=== PATIENT | female | born 1995 | race Caucasian/White ===

== ENCOUNTER 2019-03-10 08:44 | Day surgery (SDC) | payer OTHER ==
[2019-03-10 09:14] LABS: Absolute Lymphocytes (CBC) 2.7 K/uL (0.7-4.9); Absolute Monocytes 0.5 K/uL (0.1-1.3); Absolute Neutrophil 3.5 K/uL (1.8-8.0); Basophils % 0.3 % (0-1.3); Eosinophils % 2.3 % (0-4.4); Hematocrit 39.8 % (36.0-45.0); Lymphocytes % 39.5 % (15.3-44.8); MPV 8.3 fL (7.6-11.3); Monocytes % 7.9 % (3.3-12.3); RBC Red Blood Cell Count 4.29 M/uL (3.86-4.86)
[2019-03-10] MEDS ORDERED: Ringers Lactate 1,000 ML IV ONE ×2 (09:15→11:06)
[2019-03-10 09:21] LABS: Specific Gravity > 1.030 (1.005-1.030)
[2019-03-10] MEDS: CEFOXITIN/SWI 1gm 1 GM/10 ML SYR ONE ×3 (09:57→10:18)
[2019-03-10] MEDS ORDERED: PROPOFOL 200 MG/20 ML VIAL IV ONE (10:02)
[2019-03-10] MEDS ORDERED: GLYCOPYRROLATE 0.2 MG/ML SYR ONE ×2 (10:02→10:03)
[2019-03-10] MEDS ORDERED: LIDOCAINE 2% MPF 5 ML VIAL ONE (10:03)
[2019-03-10] MEDS ORDERED: FENTANYL CITR 250 MCG/5 ML ONE (10:04)
[2019-03-10] MEDS ORDERED: NEOSTIGMINE 1 MG/ML -10 ML VIAL ONE ×2 (10:06→10:55)
[2019-03-10] MEDS ORDERED: ROCURONIUM 50 MG/5 ML VIAL IV ONE (10:07)
[2019-03-10] MEDS ORDERED: ONDANSETRON 4 MG/2 ML VIAL ONE ×2 (10:07→12:32)
[2019-03-10] MEDS ORDERED: MIDAZOLAM HCL 2 MG/2 ML INJ ONE (10:08)
[2019-03-10] MEDS ORDERED: MEPERIDINE HCL 25 MG/0.5 ML ONE (10:55)
[2019-03-10] MEDS: MEPERIDINE HCL 25 MG/0.5 ML ONE ×2 (11:26→11:34)
[2019-03-10] MEDS: FENTANYL CITR 100 MCG/2 ML ONE ×2 (11:39→11:46)
[2019-03-10] MEDS ORDERED: FENTANYL CITR 100 MCG/2 ML ONE (12:11)
[2019-03-10] MEDS ORDERED: HYDROCODONE/APAP 7.5/325 MG TAB ONE (12:32)
--- NOTE | 2019-03-10 22:50 | OP ---
Date of Procedure: 03/10/2019 Surgeon: Arnulfo Butt MD Calculating Machine Mechanic: JAMIE Cabrera Preoperative Diagnoses: 1.Chronic cholecystitis. 2.Biliary dyskinesia. Postoperative Diagnoses: 1.Chronic cholecystitis. 2.Biliary dyskinesia. Procedure: Laparoscopic cholecystectomy. Estimated Blood Loss: Minimal. Specimen: Gallbladder. Finding: As above. Anesthesia: General. Complications: None. Disposition: The patient tolerated the procedure in stable condition and taken to Recovery in good g eneral condition. Procedure In Detail: The patient was brought to the OR and placed in supine position. General anest hesia was begun. The patient was prepped and draped in usual sterile fashion. Marcaine 0.5% was infi ltrated locally. A #15 blade was used to make a 1-cm supraumbilical midline incision. Subcutaneous tissues were divided. The fascia was identified and divided. A #1 Vicryl stay suture was placed. Peritoneal cavity was entered with blunt dissection. A 12-mm trocar placed into the peritoneal cavit y under direct vision. Pneumoperitoneum was established. Then, three 5-mm trocars were placed, 1 in the epigastrium just to the right of midline, and 2 in the right subcostal region. Laparoscopy reve aled chronic inflammation of the gallbladder. Fundus was retracted superiorly. Infundibulum was id entified and retracted inferolaterally. Cystic duct and cystic artery were clearly identified with b shyla dissection. Clips were placed. Both structures were divided. Cautery was used to remove the g allbladder from the liver bed. Bleeding in the liver bed was controlled with cautery. The gallbladd er was retrieved through the umbilicus via an EndoCatch bag. Right upper quadrant was irrigated. Ef fluent was clear. No evidence of bleeding or bile leakage appreciated. Subsequently, all trocars we re removed under direct vision. Stay sutures were tied to each other to approximate the fascial defe ct. Subcu wounds were irrigated. Bleeding was controlled with cautery. 3-0 chromic was used to melvin roximate the subcutaneous tissues and close the skin. Sterile dressing was applied. The patient was awakened and taken to Recovery in good general condition. Discharge Note: The patient will go to Day Surgery, and home when stable. Disposition: Home. Condition: Stable. Discharge Instructions: 1.Resume home medications and diet. 2.Activity as tolerated. 3.No heavy lifting. 4.Remove outer dressing in 2 days. 5.Shower. 6.Keep wound clean and dry. 7.Follow up in my office in a week. Call for appointment. 8.Tylenol No.3, one tablet p.o. q.4 p.r.n. pain. 9.Incentive spirometry q.1 hour. 10.Keep Steri-Strips on at all times. DUC/ZEYAD Voice ID: [id number] Report ID: [id number]
== END 2019-03-10 14:17 | disposition home or self-care (01) ==
LOC: OR 08:44
PROVIDERS: ATTEND Surgery
PROC: 0FT44ZZ Resection of Gallbladder, Percutaneous Endoscopic Approach (ICD-10-PCS; principal; 2019-03-10 10:00)
DX: K81.1 Chronic cholecystitis (principal); K82.8 Other specified diseases of gallbladder
CPT/HCPCS: 36415; 81025; 85025; 88304; J2175; J2250; J2405; J2704; J2710; J3010

== ENCOUNTER 2022-11-24 01:14 | Emergency (ER) | payer BC, OTHER ==
--- OUTSIDE RECORDS SUMMARY | 2022-11-24 01:17 | XMS REPORT | Continuity of Care Document ---
:1995 Author Organization [facility] t Address [address] [place] [address] [address]. P[address] [place] [address] Care Team Providers Name Role Phone JAVIER Attending Clinician Unavailable Gurvinder Arriaga Attending Clinician [phone] JAVIER Admitting Clinician Unavailable Payers Payer Name Policy Type Policy Number Effective Date Expiration Date S r[place] [id number] 2019 00:00:00 [place] Problems Condition Condition Condition Status Onset Resolution Last Treating Co mments Source Name Details Category Date Date Treatment Clinician Date Hyperchole Hyperchole Problem Active [place] sterolemia sterolemia 1-06 Co mmuni 00:00: ty 00 [facility] Mixed Mixed Problem Active [place] anxiety Anxiety 1-06 Communi and and 00:00: ty depressive Depressive 00 Ho spita disorder Disorder [facility] Allergies, Adverse Reactions, Alerts Allergy Allergy Status Severity Reaction(s) Onset Inactive Treating Comm ents Source Name Type Date Date Clinician SULFA Allergy Active [place] (SULFONA to Communi MIDE substanc ty ANTIBIOT e [facility]osp[facility]) [facility] Social History Smoking Status Start Date Stop Date Source Never Smoker [facility] Medications Ordered Filled Start Stop Current Ordering Indication Dosage Frequency Signature Comments Components Source Medication Medication Date Date Medication? Clinician (SIG) Name Name bupropion bupropion No bupropion [place] HCl XL 150 HCl XL 150 HCl XL 150 Communi mg 24 hr mg 24 hr mg 24 hr ty tablet, tablet, tablet, Hospit a extended extended extended l release release release Clinic s Take 1 Take 1 Take 1 tablet tablet tablet daily by daily by daily by mouth mouth mouth hydroxyzine hydroxyzine No hydroxyzin [place] HCl 10 mg HCl 10 mg e HCl 10 C ommuni tablet Take tablet Take mg tablet ty PRN PRN Take PRN Hospita l Clinics prednisone prednisone No prednisone [place] 20 mg 20 mg 20 mg Communi tablet 2 tablet 2 tablet 2 ty tablets tablets tablets Hospit a first day, first day, first day, l then 1 po then 1 po then 1 po Clinics qd until qd until qd until finished finished finished bupropion bupropion No bupropion [place] HCl XL 150 HCl XL 150 HCl XL 150 Communi mg 24 hr mg 24 hr mg 24 hr ty tablet, tablet, tablet, Hospit a extended extended extended l release release release Clinic s Take 1 Take 1 Take 1 tablet tablet tablet daily by daily by daily by mouth mouth mouth hydroxyzine hydroxyzine No hydroxyzin [place] HCl 10 mg HCl 10 mg e HCl 10 C ommuni tablet Take tablet Take mg tablet ty PRN PRN Take PRN Hospita l Clinics prednisone prednisone No prednisone [place] 20 mg 20 mg 20 mg Communi tablet 2 tablet 2 tablet 2 ty tablets tablets tablets Hospit a first day, first day, first day, l then 1 po then 1 po then 1 po Clinics qd until qd until qd until finished finished finished bupropion bupropion No bupropion [place] HCl XL 150 HCl XL 150 HCl XL 150 Communi mg 24 hr mg 24 hr mg 24 hr ty tablet, tablet, tablet, Hospit a extended extended extended l release release release Clinic s Take 1 Take 1 Take 1 tablet tablet tablet daily by daily by daily by mouth mouth mouth hydroxyzine hydroxyzine No hydroxyzin [place] HCl 10 mg HCl 10 mg e HCl 10 C ommuni tablet Take tablet Take mg tablet ty PRN PRN Take PRN Hospita [facility]ics prednisone prednisone No prednisone [place] 20 mg 20 mg 20 mg Communi tablet 2 tablet 2 tablet 2 ty tablets tablets tablets Hospit a first day, first day, first day, l then 1 po then 1 po then 1 po Clinics qd until qd until qd until finished finished finished Vital Signs Vital Name Observation Time Observation Value Comments Source BP Diastolic 2021-11-13 00:00:00 70 mm[Hg] [facility] s Height 2021-11-13 00:00:00 63 [in_i] [facility] s BMI (Body Mass 2021-11-13 00:00:00 18.1 kg/m2 [facility] s BP Systolic 2021-11-13 00:00:00 108 mm[Hg] [facility] s Body Weight 2021-11-13 00:00:00 1632 [oz_av] [facility] s Procedures Procedure Date / Time Performing Clinician Source Performed XR, foot, 3 or more view 2021-11-13 00:00:00 [facility] Cholecystectomy [facility] Encounters Start End Encounter Admission Attending Care Care Encounter Source Date/Time Date/Time Type Type Clinicians Facility Department ID 2022-02-11 2022-02-11 Outpatient [facility]R [facility] [id number] [place] 03:27:00 03:27:00 [id number] [facility] 2022-01-07 2022-01-[address] [facility] [id number] [place] 03:59:00 03:59:00 [id number] [facility] 2021-12-04 2021-12-[address] [facility] [address] [place] 06:15:00 06:15:00 0127 [facility] 2021-11-13 2021-11-[address] [facility] [id number] [place] 02:58:00 02:58:00 0106 [facility] 2021-11-13 2021-11-13 [facility] [place] [facility] [place] 00:00:00 00:00:00 [facility] - DO: [address] Hospit [facility] l [address], [facility] Clinic s [place], [place] CLINIC, [address] PENNY , Ph. 2021-11-13 2021-11-13 Outpatient [facility] [id number] 00:00:00 00:00:00 Gurvinder [id number] Anjel [id number] 2021-11-[address] [facility] [id number] 00:00:00 00:00:00 Gurvinder [id number] Anjel [id number] 2021-11-[address] [facility] [id number] 00:00:00 00:00:00 Gurvinder [id number] Anjel [id number] Results This patient has no known results.
[2022-11-24 01:48] LABS: Urine Blood 2+ (Negative); Urine Glucose Negative (Negative); Urine Protein 1+ (Negative)
[2022-11-24] MEDS ORDERED: MORPHINE 4 MG/ML SYR ONE (02:02)
[2022-11-24] MEDS ORDERED: ONDANSETRON 4 MG/2 ML VIAL ONE (02:02)
[2022-11-24 02:03] LABS: Hematocrit 41.3 % (36.0-45.0); Lymphocytes % 28.6 % (15.3-44.8); MCV 91.9 fL (80-100); MPV 8.2 fL (7.6-11.3); RBC Red Blood Cell Count 4.49 M/uL (3.86-4.86)
[2022-11-24 02:06] LABS: Urine Bacteria <20 /HPF (<20); Urine Mucus Slight /HPF (None Seen); Urine RBC 21-50 /HPF (None Seen); Urine WBC Clump Rare /HPF (None Seen)
[2022-11-24 02:30] LABS: Albumin 4.5 g/dL (3.4-5.0); Bilirubin Total 0.6 mg/dL (0.2-1.0); Potassium 3.2 mmol/L (3.5-5.1); Protein, Total 8.3 g/dL (6.4-8.2)
--- NOTE | 2022-11-24 03:43 | EDPHYS ---
Physician Documentation [facility] Name: Brianda Rodriguez Age: 26 yrs Sex: Female : 1995 Arrival Date: 11/24/2022 Time: 01:20 Bed 4 Private MD: ED Physician Leno Ramirez HPI: 11/24 02:35 This 26 yrs old Female presents to ER via Ambulatory with complaints of Abdominal Pain, rn Back Pain. 02:35 The patient presents with abdominal pain in the right upper quadrant, right lower rn quadrant. 02:35 Onset: The symptoms/episode began/occurred 2 day(s) ago. The symptoms radiate to right rn back. Associated signs and symptoms: Pertinent positives: dysuria, nausea, Pertinent negatives: fever, shortness of breath, vaginal discharge, vomiting. The symptoms are described as intermittent. Modifying factors: The symptoms are alleviated by nothing, the symptoms are aggravated by touching the area. Severity of pain: At its worst the pain was moderate in the emergency department the pain is unchanged. The patient has not experienced similar symptoms in the past. The patient has not recently seen a physician. 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 - Social history:: Smoking status: Patient denies any tobacco usage or history of. - Family history:: not pertinent. - Hospitalizations: : No recent hospitalization is reported. ROS: 02:35 Constitutional: Negative for fever, chills, and weight loss, Eyes: Negative for injury, rn pain, redness, and discharge, Cardiovascular: Negative for chest pain, palpitations, and edema, Respiratory: Negative for shortness of breath, cough, wheezing, and pleuritic chest pain, Abdomen/GI: + right lower abd pain, + nausea, no vomiting Back: Negative for injury, + right flank/back pain : + dysuria and increased frequency MS/Extremity: Negative for injury and deformity, Skin: Negative for injury, rash, and discoloration, Neuro: Negative for headache, numbness, tingling, and seizure. Exam: 02:35 Constitutional: This is a well developed, well nourished patient who is awake, alert, rn appears uncomfortable, ambulatory to room and bathroom without difficulty. Head/Face: Normocephalic, atraumatic. Cardiovascular: Regular rate and rhythm. No pulse deficits. Respiratory: No increased work of breathing, no retractions or nasal flaring. Abdomen/GI: soft, + RLQ tenderness, no rebound, no masses, + suprapubic tenderenss Back: No spinal tenderness. Full range of motion. Skin: Warm, dry MS/ Extremity: Pulses equal, no cyanosis. Neuro: Awake and alert, GCS 15, oriented to person, place, time, and situation. Vital Signs: 01:31 BP 124 / 85; Pulse 93; Resp 16; Temp 98.0(O); Pulse Ox 100% on R/A; Weight 45.36 kg ll3 (R); Height 5 ft. 4 in. (162.56 cm); Pain 8/10; 01:49 BP 125 / 75; Pulse 91; Resp 16; Pulse Ox 100% on R/A; kd3 02:36 BP 116 / 73; Pulse 73; Resp 19; Pulse Ox 100% on R/A; kd3 03:09 BP 122 / 83; Pulse 91; Resp 18; Pulse Ox 100% ; kd3 04:47 BP 122 / 76; Pulse 92; Resp 19; Pulse Ox 99% on R/A; kd3 01:31 Body Mass Index 17.16 (45.36 kg, 162.56 cm) ll3 MDM: 01:20 Patient medically screened. rn 03:08 Differential diagnosis: appendicitis, bowel obstruction, diverticulitis, Ectopic rn , Endometriosis, non-specific abd pain, Ovarian Torsion, Peritonitis, Pyelonephritis, Ureterolithiasis, urinary tract infection. 03:39 Data reviewed: vital signs, nurses notes, lab test result(s), radiologic studies, CT rn scan, and as a result, I will discharge patient. 03:40 Counseling: I had a detailed discussion with the patient and/or guardian regarding: the rn historical points, exam findings, and any diagnostic results supporting the discharge/admit diagnosis, lab results, radiology results, the need for outpatient follow up, to return to the emergency department if symptoms worsen or persist or if there are any questions or concerns that arise at home. Response to treatment: the patient's symptoms have markedly improved after treatment, and as a result, I will discharge patient. Special discussion: Based on the patient's Hx, exam, and Dx evaluation, there is no indication for emergent surgery or inpatient Tx. It is understood by the patient/guardian that if the Sx's persist or worsen they need to return immediately for re-evaluation. I discussed with the patient/guardian in detail that at this point there is no indication for admission to the hospital. It is understood, however, that if the symptoms persist or worsen the patient needs to return immediately for re-evaluation. Based on the history and exam findings, there is no indication for further emergent testing or inpatient evaluation. I discussed with the patient/guardian the need to see the primary care provider for further evaluation of the symptoms. ED course: NO acute findings on CT abdomen/pelvis, normal appendix, has already had gallbladder removed. + WBC and WBC clumps in Urine, will treat for UTI given dysuria and flank pain. No evidence of pyelonephritis. Return precautions given and understood.. 11/24 01:31 Order name: CBC with Diff; Complete Time: 03:14 rn 11/24 03:40 Interpretation: Within normal limits. rn 11/24 01:31 Order name: CMP; Complete Time: 03:14 rn 11/24 03:40 Interpretation: Normal except: K 3.2. rn 11/24 01:31 Order name: Lipase; Complete Time: 03:14 rn 11/24 03:40 Interpretation: Within normal limits. rn 11/24 01:31 Order name: Urine Microscopic Only; Complete Time: 03:14 rn 11/24 03:40 Interpretation: Abnormal. rn 11/24 01:31 Order name: Urine Culture rn 11/24 01:48 Order name: Urine Dipstick-Ancillary; Complete Time: 01:58 EDMS 11/24 01:31 Order name: CT Abd/Pelvis - IV Contrast Only rn 11/24 01:31 Order name: IV Saline Lock; Complete Time: 01:48 rn 11/24 01:31 Order name: Labs collected and sent; Complete Time: 01:48 rn 11/24 02:08 Order name: Urine --Ancillary (enter results); Complete Time: 03:14 bb 11/24 01:31 Order name: Urine Dipstick-Ancillary (obtain specimen); Complete Time: 01:49 rn 11/24 01:31 Order name: Urine Test (obtain specimen); Complete Time: 01:49 rn Administered Medications: 02:05 Drug: morphine 4 mg Route: IVP; Infused Over: 4 mins; Site: left antecubital; kd3 03:50 Follow up: Response: No adverse reaction kd3 02:05 Drug: Zofran (Ondansetron) 4 mg Route: IVP; Site: left antecubital; kd3 03:50 Follow up: Response: No adverse reaction kd3 03:50 Drug: Cipro (ciprofloxacin) 400 mg Volume: 200 ml; Route: IVPB; Infused Over: 60 mins; kd3 Site: left antecubital; 04:47 Follow up: Response: No adverse reaction; IV Status: Completed infusion; IV Intake: kd3 200ml 04:52 Drug: Ondansetron 4 mg Route: PO; kd3 Disposition Summary: 11/24/22 03:42 Discharge Ordered Location: Home rn Problem: new rn Symptoms: have improved rn Condition: Stable rn Diagnosis - Abdominal pain, unspecified rn - UTI/ Urinary tract infection, site not specified rn Followup: rn - With: Private Physician - When: As needed - Reason: Recheck today's complaints, Re-evaluation by your physician Discharge Instructions: - Discharge Summary Sheet rn - Abdominal Pain, Adult rn - Urinary Tract Infection, Adult rn Forms: - Medication Reconciliation Form rn - Thank You Letter rn - Antibiotic medical assistant internal medicine - Prescription Opioid Use rn Prescriptions: - Cipro 500 mg Oral Tablet - take 1 tablet by ORAL route every 12 hours for 10 days; 20 tablet; Refills: 0, rn Product Selection Permitted - Fluconazole 150 mg Oral Tablet - take 1 tablet by ORAL route once daily; 3 tablet; Refills: 0, Product Selection rn Permitted - ondansetron 4 mg Oral - take 4 milligrams by SUBLINGUAL route every 8 hours; 15 tablet; Refills: 0, rn Product Selection Permitted Signatures: Dispatcher [employer] Leno Antony MD MD rn Loubet, Lynsea, RN RN ll3 Cira Mace RN RN kd3 Corrections: (The following items were deleted from the chart) 02:41 02:35 Constitutional: This is a well developed, well nourished patient who is awake, rn alert, appears uncomfortable rn
--- NOTE | 2022-11-24 03:43 | ER ---
Nurse's Notes [facility] Name: Brianda Rodriguez Age: 26 yrs Sex: Female : 1995 Arrival Date: 11/24/2022 Time: 01:20 Bed 4 Private MD: Diagnosis: Abdominal pain, unspecified;UTI/ Urinary tract infection, site not specified Presentation: 11/24 01:31 Chief complaint: Patient states: C/o abdominal pain, back pain, nausea, chills, and ll3 urinary frequency. Coronavirus screen: Vaccine status: Patient reports receiving the 2nd dose of the covid vaccine. At this time, the client does not indicate any symptoms associated with coronavirus-19. Ebola Screen: No symptoms or risks identified at this time. Initial Sepsis Screen: Does the patient meet any 2 criteria? No. Patient's initial sepsis screen is negative. Does the patient have a suspected source of infection? No. Patient's initial sepsis screen is negative. Risk Assessment: Do you want to hurt yourself or someone else? Patient reports no desire to harm self or others. Onset of symptoms was November 22, 2021. 01:31 Method Of Arrival: Ambulatory ll3 01:31 Acuity: ANAT 3 ll3 Triage Assessment: 01:36 General: Appears uncomfortable, Behavior is calm, cooperative. Pain: Complains of pain ll3 in right upper quadrant Pain radiates to back Pain currently is 8 out of 10 on a pain scale. Neuro: Level of Consciousness is awake, alert, obeys commands, Oriented to person, place, time, situation. GI: Reports lower abdominal pain, upper abdominal pain, nausea. : Reports urgency, urinary frequency. Derm: Skin is pink, warm \T\ dry. Musculoskeletal: Circulation, motion, and sensation intact. 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 - Social history:: Smoking status: Patient denies any tobacco usage or history of. - Family history:: not pertinent. - Hospitalizations: : No recent hospitalization is reported. Screenin:49 [facility] ED Fall Risk Assessment (Adult) History of falling in the last 3 months, kd3 including since admission No falls in past 3 months (0 pts). [facility] ED Fall Risk Assessment (Adult) History of falling in the last 3 months, including since admission No falls in past 3 months (0 pts) Confusion or Disorientation No (0 pts) Intoxicated or Sedated No (0 pts) Impaired Gait No (0 pts) Mobility Assist Device Used No (0 pt) Altered Elimination No (0 pt) Score/Fall Risk Level 0 - 2 = Low Risk. Abuse screen: Denies threats or abuse. Denies injuries from another. Nutritional screening: No deficits noted. Tuberculosis screening: No symptoms or risk factors identified. Assessment: 01:38 General: See triage assessment. ll3 01:49 Neuro: Level of Consciousness is awake, alert, obeys commands, Oriented to person, kd3 place, time, situation. Cardiovascular: Patient's skin is warm and dry. Respiratory: Airway is patent Trachea midline Respiratory effort is even, unlabored, Respiratory pattern is regular, symmetrical. GI: Bowel sounds present X 4 quads. Abdomen is tender to palpation in abdomen and right upper quadrant. 03:10 Reassessment: Patient and/or family updated on plan of care and expected duration. Pain kd3 level reassessed. Patient is alert, oriented x 3, equal unlabored respirations, skin warm/dry/pink. Patient states feeling better. 04:01 General: pt will d/c after abx completion . kd3 Vital Signs: 01:31 BP 124 / 85; Pulse 93; Resp 16; Temp 98.0(O); Pulse Ox 100% on R/A; Weight 45.36 kg ll3 (R); Height 5 ft. 4 in. (162.56 cm); Pain 8/10; 01:49 BP 125 / 75; Pulse 91; Resp 16; Pulse Ox 100% on R/A; kd3 02:36 BP 116 / 73; Pulse 73; Resp 19; Pulse Ox 100% on R/A; kd3 03:09 BP 122 / 83; Pulse 91; Resp 18; Pulse Ox 100% ; kd3 04:47 BP 122 / 76; Pulse 92; Resp 19; Pulse Ox 99% on R/A; kd3 01:31 Body Mass Index 17.16 (45.36 kg, 162.56 cm) ll3 ED Course: 01:20 Patient arrived in ED. es 01:20 Leno Ramirez MD is Attending Physician. rn 01:21 Rodri, Cira, RN is Primary Nurse. kd3 01:36 Triage completed. ll3 01:36 Arm band placed on Patient placed in an exam room, on a stretcher, on pulse oximetry. ll3 01:49 CBC with Diff Sent. kd3 01:49 CMP Sent. kd3 01:49 Lipase Sent. kd3 01:49 Urine Microscopic Only Sent. kd3 01:49 Urine Culture Sent. kd3 01:50 Patient has correct armband on for positive identification. Placed in gown. Bed in low kd3 position. 03:12 CT Abd/Pelvis - IV Contrast Only In Process Unspecified. EDMS 04:47 No provider procedures requiring assistance completed. IV discontinued, intact, kd3 bleeding controlled, No redness/swelling at site. Pressure dressing applied. 04:50 Primary Nurse role handed off by Cira Mace RN kd3 04:52 Cira Mace RN is Primary Nurse. kd3 Administered Medications: 02:05 Drug: morphine 4 mg Route: IVP; Infused Over: 4 mins; Site: left antecubital; kd3 03:50 Follow up: Response: No adverse reaction kd3 02:05 Drug: Zofran (Ondansetron) 4 mg Route: IVP; Site: left antecubital; kd3 03:50 Follow up: Response: No adverse reaction kd3 03:50 Drug: Cipro (ciprofloxacin) 400 mg Volume: 200 ml; Route: IVPB; Infused Over: 60 mins; kd3 Site: left antecubital; 04:47 Follow up: Response: No adverse reaction; IV Status: Completed infusion; IV Intake: kd3 200ml 04:52 Drug: Ondansetron 4 mg Route: PO; kd3 Medication: 01:50 VIS not applicable for this client. kd3 Intake: 04:47 IV: 200ml; Total: 200ml. kd3 Outcome: 03:42 Discharge ordered by . rn 04:47 Discharged to home ambulatory. kd3 04:47 Condition: stable 04:47 Discharge instructions given to patient, family, Instructed on discharge instructions, follow up and referral plans. Demonstrated understanding of instructions, follow-up care. 04:48 Patient left the ED. kd3 04:52 Patient left the ED. kd3 Signatures: Dispatcher [employer] Sri Navaeto, Leno, MD MD rn Marquest, Manuela RN RN ll3 Cira Mace RN RN kd3
[2022-11-24] MEDS ORDERED: CIPROFLOXACIN 400mg IV 400 MG/200 ML BAG IV ONE (03:46)
[2022-11-24] MEDS ORDERED: ONDANSETRON 4 MG (ODT) TAB ONE (04:54)
[2022-11-24 04:56] VITALS: TEMP 98
[2022-11-24 05:00] VITALS: BP 122/76; O2SAT 99
--- NOTE | 2022-11-24 14:10 | RAD REPORT ---
EXAM DESCRIPTION: CT - Abdomen Pelvis W Contrast - 11/24/2022 6:57 am CLINICAL HISTORY: 26 years, Female, RLQ and right flank pain COMPARISON: None TECHNIQUE: Contrast-enhanced images of the abdomen and pelvis were performed utilizing 5 mm slice th ickness at 5 mm interval reconstruction from the lung bases to the ischial tuberosities after the adm inistration of IV contrast. In addition multiplanar reformats in the coronal and sagittal plane were obtained and reviewed. This exam was performed according to our departmental dose-optimization protocol, which includes auto mated exposure control, adjustment of the mA and/or kV according to patient size and/or use of iterat tootie reconstruction technique. FINDINGS: The lung bases demonstrate to be clear. The liver, pancreas, spleen and adrenal glands demonstrate to be unremarkable, no focal lesions are n oted. Surgical clips within the gallbladder fossa correspond to previous cholecystectomy. There is no biliary duct dictation The kidneys demonstrate normal uptake of contrast media. No evidence for nephrolithiasis and/or hydro nephrosis. Grossly the unopacified stomach, small bowel and large bowel demonstrate to be within normal limits. There is no evidence for bowel dilatation/or free air. There is mild fecal stasis. The appendix i s within normal limits. The urinary bladder demonstrate to be unremarkable. The uterus demonstrate to be within normal limi ts. Findings just most likely a septate uterus. There are no adnexal masses. The aorta demonstrate to be normal. There is no retroperitoneal lymphadenopathy. There is no evidence for ascites/or sign ificant abnormal fluid collections. The rest of the soft tissue and bony structures are within normal limits. IMPRESSION: No evidence for nephrolithiasis and/or hydronephrosis. Mild fecal stasis. Status post cholecystectomy. Electronically signed by: Sal Ponce MD 11/24/2022 3:21 AM EMERGENCY RESPONSE TECHNICIAN Due to temporary technical issues with the PACS/Fluency reporting system, reports are being signed by the in house radiologists without review as a courtesy to insure prompt reporting. The interpreting radiologist is fully responsible for the content of the report.
== END 2022-11-24 04:52 | disposition home or self-care (01) ==
LOC: ER 01:14
DX: N39.0 Urinary tract infection, site not specified (principal); Z88.2 Allergy status to sulfonamides
CPT/HCPCS: 87088; 85025; 87086; 36415; 81025; 83690; 80053; 74177; Q9967; Q0162; J2405; J0744; 81003; 81015